=== PATIENT | male | born 1960 | race Caucasian/White ===

== ENCOUNTER 2017-01-22 12:15 | Observation (INO) | payer MEDICAID ==
[2017-01-22 12:55] LABS: BASO % 0.1 % (0-2); EOS % 1.1 % (0-7); EOSINOPHIL ABSOLUTE COUNT 0.1 tho/cmm (0.0-0.7); HCT-HEMATOCRIT 33.6 % (36.0-53.5); HGB-HEMOGLOBIN 11.2 gm/dl (13.5-17.0); IMMATURE GRANULOCYTES ABSOLUTE 0.02 tho/cmm (0-0.03); IMMATURE GRANULOCYTES PERCENT 0.3 % (0-0.3); LYMPH % 12.8 % (20-45); LYMPH ABSOLUTE COUNT 0.9 tho/cmm (0.8-4.5); MCH (MEAN CORPUSCULAR HGB) 29.7 pg (28.0-32.0); MCHC MEAN CORPUSCULAR HGB CONC 33.3 % (32.0-36.0); MCV (MEAN CELL VOLUME) 89.1 fl (82.0-96.0); MEAN PLATELET VOLUME 8.9 cmc (9.4-12.4); MONO % 7.6 % (0-12); MONOCYTE ABSOLUTE COUNT 0.5 tho/cmm (0.0-1.2); NEUTROPHIL ABSOLUTE COUNT 5.5 tho/cmm (1.6-8.0); NEUTROPHIL-AUTOMATED 5.5 tho/cmm (1.6-8.0); NEUTROPHILS % 78.1 % (40-80); PLATELET COUNT 374 tho/cmm (150-450); RED BLOOD COUNT 3.77 mil/cmm (4.40-5.70); RED CELL DISTRIBUTION WIDTH 16.6 % (12.4-16.4)
[2017-01-22 13:07] LABS: ANION GAP 13 mmol/L (0-20); BLOOD UREA NITROGEN 6 mg/dl (6-24); CALCIUM 8.1 mg/dl (8.5-10.5); CARBON DIOXIDE-VENOUS 24 mmol/L (22-32); CHLORIDE 99 mmol/l (96-110); CREATININE 0.65 mg/dl (0.60-1.30); SODIUM 131 mmol/L (135-145); eGFR VALUE FOR BLACK >90 mL/Min
[2017-01-22 13:10] LABS: GLUCOSE 35 mg/dL (70-110)
[2017-01-22 13:18] LABS: URINE BILIRUBIN NEGATIVE (NEG); URINE BLOOD NEGATIVE (NEG); URINE GLUCOSE (UA) NEGATIVE (NEG); URINE KETONE NEGATIVE (NEG); URINE LEUKOCYTE ESTERASE NEGATIVE (NEG); URINE NITRITE NEGATIVE (NEG); URINE PROTEIN MODERATE (NEG)
[2017-01-22 13:19] LABS: URINE APPEARANCE CLEAR; URINE COLOR YELLOW
[2017-01-22 13:30] LABS: URINE EPITHELIAL CELLS 0-1 /[HPF] (0-10); URINE RBC 0-2 /[HPF] (0-5); URINE WBC 0-1 /[HPF] (0-5)
[2017-01-22] MEDS ORDERED: LIPITOR80 M1 PO (14:19)
[2017-01-22] MEDS ORDERED: ASPIRIN EC81 MG PO (14:19)
[2017-01-22] MEDS ORDERED: NORVASC10 M2 PO (14:19)
[2017-01-22] MEDS ORDERED: PRINIVIL20 M1 PO (14:20)
[2017-01-22] MEDS ORDERED: GLUCOTROL10 M1 PO (14:20)
[2017-01-22] MEDS ORDERED: GLUCOPHAGE1000 M1 PO (14:21)
[2017-01-22] MEDS ORDERED: MONTELUKAST SOD10 M2 PO (14:21)
[2017-01-22] MEDS ORDERED: PHENOBARBITAL PO (14:21)
[2017-01-22] MEDS ORDERED: DILANTIN100 M1 PO (14:22)
[2017-01-22] MEDS ORDERED: TYLENOL325 M2 PO (16:27)
[2017-01-23 06:49] LABS: ANION GAP 13 mmol/L (0-20); BLOOD UREA NITROGEN 8 mg/dl (6-24); CARBON DIOXIDE-VENOUS 22 mmol/L (22-32); CHLORIDE 103 mmol/l (96-110); CREATININE 0.65 mg/dl (0.60-1.30); POTASSIUM 5.5 mmol/L (3.7-5.1); SODIUM 132 mmol/L (135-145); eGFR VALUE FOR BLACK >90 mL/Min
[2017-01-23 06:50] LABS: GLUCOSE 128 mg/dL (70-110)
[2017-01-23] MEDS ORDERED: LIDODERM1 EACH TP (17:31)
[2017-01-23] MEDS ORDERED: LASIX40 M1 PO (17:32)
== END 2017-01-23 18:30 ==
LOC: EDMED 12:15 → EMR2 15:23 → CAR1 15:38
PROVIDERS: Emergency Medicine; Internal Medicine; ADMIT Hospitalist
DX: E11.649 Type 2 diabetes mellitus with hypoglycemia without coma (principal); I10 Essential (primary) hypertension; E87.6 Hypokalemia; E78.5 Hyperlipidemia, unspecified; E66.01 Morbid (severe) obesity due to excess calories; R53.81 Other malaise; G40.909 Epilepsy, unspecified, not intractable, without status epilepticus; R60.0 Localized edema; F17.210 Nicotine dependence, cigarettes, uncomplicated; Z79.82 Long term (current) use of aspirin; Z79.84 Long term (current) use of oral hypoglycemic drugs; Z79.899 Other long term (current) drug therapy; Z98.890 Other specified postprocedural states
CPT/HCPCS: G0378; G8978-GP-CK; G8979-GP-CJ; G8980-GP-CK; G8987-GO-CK; G8988-GO-CJ; G8989-GO-CK